=== PATIENT | female | born 1970 | race Caucasian/White ===

== ENCOUNTER 2018-02-16 13:54 | Emergency (ER) | payer BC ==
[2018-02-16] MEDS ORDERED: TETANUS & DIPHTHERIA TOX,ADULT 0.5 ML VIAL ONE (14:21)
[2018-02-16] MEDS ORDERED: DERMABOND SKIN ADHESIVE TOP ONE (14:21)
--- NOTE | 2018-02-16 14:43 | EDPHYS ---
Physician Documentation [facility] Name: Daja Escoto Age: 47 yrs Sex: Female : 1970 Arrival Date: 02/16/2018 Time: 13:56 Bed 13 Private MD: Rita Abreu H ED Physician Bon Garcia HPI: 02/16 14:40 This 47 yrs old Female presents to ER via Ambulatory with complaints of jr8 Finger Injury. 14:40 The patient or guardian reports a laceration, pain. The complaints affect the DIP of jr8 right middle finger. Context: The problem was sustained at home. Onset: The symptoms/episode began/occurred acutely, today. Modifying factors: The symptoms are alleviated by nothing, the symptoms are aggravated by movement. Associated signs and symptoms: The patient has no apparent associated signs or symptoms. Severity of symptoms: At their worst the symptoms were moderate, in the emergency department the symptoms are unchanged. The patient has not experienced similar symptoms in the past. The patient has not recently seen a physician. Stated that she caught finger in trailer ramp. 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 - Social history:: Smoking status: Patient/guardian denies using tobacco. - Ebola Screening: : No symptoms or risks identified at this time. ROS: 14:40 Eyes: Negative for injury, pain, redness, and discharge, ENT: Negative for injury, jr8 pain, and discharge, Neck: Negative for injury, pain, and swelling, Cardiovascular: Negative for chest pain, palpitations, and edema, Respiratory: Negative for shortness of breath, cough, wheezing, and pleuritic chest pain, Abdomen/GI: Negative for abdominal pain, nausea, vomiting, diarrhea, and constipation, Back: Negative for injury and pain, Skin: Negative for injury, rash, and discoloration, Neuro: Negative for headache, weakness, numbness, tingling, and seizure. 14:40 MS/extremity: Positive for decreased range of motion, ecchymosis, laceration, pain, tenderness, of the DIP of right middle finger. Exam: 14:40 Eyes: Pupils equal round and reactive to light, extra-ocular motions intact. Lids and jr8 lashes normal. Conjunctiva and sclera are non-icteric and not injected. Cornea within normal limits. Periorbital areas with no swelling, redness, or edema. ENT: Nares patent. No nasal discharge, no septal abnormalities noted. Tympanic membranes are normal and external auditory canals are clear. Oropharynx with no redness, swelling, or masses, exudates, or evidence of obstruction, uvula midline. Mucous membranes moist. Neck: Trachea midline, no thyromegaly or masses palpated, and no cervical lymphadenopathy. Supple, full range of motion without nuchal rigidity, or vertebral point tenderness. No Meningismus. Cardiovascular: Regular rate and rhythm with a normal S1 and S2. No gallops, murmurs, or rubs. Normal PMI, no JVD. No pulse deficits. Respiratory: Lungs have equal breath sounds bilaterally, clear to auscultation and percussion. No rales, rhonchi or wheezes noted. No increased work of breathing, no retractions or nasal flaring. Abdomen/GI: Soft, non-tender, with normal bowel sounds. No distension or tympany. No guarding or rebound. No evidence of tenderness throughout. Back: No spinal tenderness. No costovertebral tenderness. Full range of motion. Skin: Warm, dry with normal turgor. Normal color with no rashes, no lesions, and no evidence of cellulitis. Neuro: Awake and alert, GCS 15, oriented to person, place, time, and situation. Cranial nerves II-XII grossly intact. Motor strength 5/5 in all extremities. Sensory grossly intact. Cerebellar exam normal. Normal gait. 14:40 Musculoskeletal/extremity: Extremities: grossly normal except: noted in the DIP of right middle finger: decreased ROM, ecchymosis, laceration, pain, tenderness, ROM: limited active range of motion, limited passive range of motion, limited active range of motion due to pain, limited passive range of motion due to pain, Circulation is intact in all extremities. Sensation intact. Vital Signs: 14:04 BP 179 / 88; Pulse 82; Resp 20; Temp 98.4; Pulse Ox 98% ; Weight 65.77 kg; Height 5 ft. sv 5 in. (165.10 cm); Pain 2/10; 14:04 Body Mass Index 24.13 (65.77 kg, 165.10 cm) sv Laceration: 14:40 Wound Repair of 1.5cm ( 0.6in ) subcutaneous laceration to DIP of right middle finger. jr8 Irregularly shaped.. Distal neuro/vascular/tendon intact. Wound prep: Extensive cleansing with hibiclenz by nurse, Wound irrigation with saline by nurse, Wound explored extensively. Skin closed with 2 thin layer Adhesive skin closure using Dermabond. MDM: 14:14 Patient medically screened. jr8 14:40 Data reviewed: vital signs, nurses notes, and as a result, I will discharge patient. jr8 Data reviewed: radiologic studies, plain films. Data interpreted: Pulse oximetry: on room air is 98 %. Interpretation: normal. Counseling: I had a detailed discussion with the patient and/or guardian regarding: the historical points, exam findings, and any diagnostic results supporting the discharge/admit diagnosis, radiology results, the need for outpatient follow up, a family practitioner, to return to the emergency department if symptoms worsen or persist or if there are any questions or concerns that arise at home. 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 Exp: rb1 02/26/2020. Lot #: [id number]. } Route: IM; Site: right deltoid; 14:33 Follow up: Response: No adverse reaction rb1 Disposition: 15:21 Co-signature as Attending Physician, Bon Garcia MD. rn Disposition: 02/16/18 14:43 Discharged to Home. Impression: Laceration without foreign body of right middle finger without damage to nail, Contusion of right middle finger without damage to nail. - Condition is Stable. - Discharge Instructions: Stitches, Negar, or Adhesive Wound Closure. - Medication Reconciliation Form, Thank You Letter, Antibiotic Education, Prescription Opioid Use form. - Follow up: Rita Abreu DO; When: 5 - 6 days; Reason: Wound Recheck, Recheck today's complaints, Continuance of care, Re-evaluation by your physician. - Problem is new. - Symptoms have improved. Signatures: Dispatcher [employer] Sudha Cali RN RN Bon Love MD MD rn Roszak, Josh, PA PA jr8 Veronika Webb, RN RN rb1 Corrections: (The following items were deleted from the chart) 14:59 14:43 02/16/2018 14:43 Discharged to Home. Impression: Laceration without foreign body rb1 of right middle finger without damage to nail; Contusion of right middle finger without damage to nail. Condition is Stable. Forms are Medication Reconciliation Form, Thank You Letter, Antibiotic Education, Prescription Opioid Use. Follow up: Rita Abreu; When: 5 - 6 days; Reason: Wound Recheck, Recheck today's complaints, Continuance of care, Re-evaluation by your physician. Problem is new. Symptoms have improved. jr8
--- NOTE | 2018-02-16 14:43 | ER ---
Nurse's Notes [facility] Name: Daja Escoto Age: 47 yrs Sex: Female : 1970 Arrival Date: 02/16/2018 Time: 13:56 Bed 13 Private MD: Rita Abreu H Diagnosis: Laceration without foreign body of right middle finger without damage to nail;Contusion of right middle finger without damage to nail Presentation: 02/16 13:59 Presenting complaint: Patient states: right 3rd digit was smashed in a door yesterday sv at 2000. Laceration noted to dorsal of 3rd right digit. Transition of care: patient was not received from another setting of care. Onset of symptoms was February 15, 2018. Care prior to arrival: None. 13:59 Method Of Arrival: Ambulatory sv 13:59 Acuity: DANILO 4 sv 14:00 Risk Assessment: Do you want to hurt yourself or someone else? Patient reports no rb1 desire to harm self or others. Initial Sepsis Screen: Does the patient meet any 2 criteria? No. Patient's initial sepsis screen is negative. Does the patient have a suspected source of infection? No. Patient's initial sepsis screen is negative. 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 - Social history:: Smoking status: Patient/guardian denies using tobacco. - Ebola Screening: : No symptoms or risks identified at this time. Screenin:00 Abuse screen: Denies threats or abuse. Nutritional screening: No deficits noted. rb1 Tuberculosis screening: No symptoms or risk factors identified. Fall Risk None identified. Assessment: 14:00 General: Appears in no apparent distress. comfortable, Behavior is calm, cooperative, rb1 Denies fever. Pain: Complains of pain in dorsal aspect of distal phalanx of right middle finger Pain currently is 4 out of 10 on a pain scale. Pain began 1 day ago. Neuro: Level of Consciousness is awake, alert, obeys commands, Oriented to person, place, time, situation. Cardiovascular: Capillary refill < 3 seconds is brisk in bilateral fingers. Respiratory: Airway is patent Respiratory effort is even, unlabored, Respiratory pattern is regular, symmetrical. GI: No signs and/or symptoms were reported involving the gastrointestinal system. : No signs and/or symptoms were reported regarding the genitourinary system. Derm: Skin is pink, warm \T\ dry. Musculoskeletal: Range of motion: limited in middle finger on right hand. Injury Description: Laceration sustained to dorsal aspect of distal phalanx of right middle finger is not bleeding, was sustained 1 day ago. no active bleeding noted at this time. 14:50 Reassessment: Patient appears in no apparent distress at this time. No changes from rb1 previously documented assessment. Vital Signs: 14:04 BP 179 / 88; Pulse 82; Resp 20; Temp 98.4; Pulse Ox 98% ; Weight 65.77 kg; Height 5 ft. sv 5 in. (165.10 cm); Pain 2/10; 14:04 Body Mass Index 24.13 (65.77 kg, 165.10 cm) sv ED Course: 13:56 Patient arrived in ED. mr 13:57 Rita Abreu DO is Private Physician. mr 13:57 Arm band placed on right wrist. Patient placed in an exam room, on a stretcher. sv 14:00 Patient has correct armband on for positive identification. Bed in low position. Call rb1 light in reach. Side rails up X 1. Pulse ox on. NIBP on. 14:04 Triage completed. sv 14:07 Surjit Daniel PA is PHCP. jr8 14:07 Bon Garcia MD is Attending Physician. jr8 14:09 Veronika Webb, LIZETT is Primary Nurse. rb1 14:34 XRAY Hand RIGHT 3 View In Process Unspecified. EDMS 14:35 X-ray completed. Portable x-ray completed in exam room. jr1 14:42 Rita Abreu DO is Referral Physician. jr8 14:59 No provider procedures requiring assistance completed. Patient did not have IV access rb1 during this emergency room visit. 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 Exp: rb1 02/26/2020. Lot #: [id number]. } Route: IM; Site: right deltoid; 14:33 Follow up: Response: No adverse reaction rb1 Outcome: 14:43 Discharge ordered by MD. xie 14:59 Patient left the ED. rb1 14:59 Discharged to home ambulatory. rb1 14:59 Condition: stable 14:59 Discharge instructions given to patient, Instructed on discharge instructions, follow up and referral plans. Demonstrated understanding of instructions, follow-up care, Prescriptions given X none Signatures: Dispatcher [employer] EDSudha Dunn, Aliyah Maldonado RN mr [place], Riddhi jr1 Surjit Daniel PA PA jr8 Veronika Webb RN RN rb1
--- NOTE | 2018-02-16 14:54 | RAD REPORT ---
EXAM DESCRIPTION: RAD - Hand Right 3 View - 02/16/2018 2:37 pm CLINICAL HISTORY: Hand pain, blunt force trauma third digit, third digit laceration COMPARISON: None. FINDINGS: No fracture is identified. There is no dislocation or periosteal reaction noted. No forei gn body or other soft tissue abnormality. IMPRESSION: Negative right hand examination.
== END 2018-02-16 14:59 | disposition home or self-care (01) ==
LOC: ER 13:54
PROC: 0JQJ0ZZ Repair Right Hand Subcutaneous Tissue and Fascia, Open Approach (ICD-10-PCS; principal; 2018-02-16)
DX: S61.212A Laceration without foreign body of right middle finger without damage to nail, initial encounter (principal); W45.8XXA Other foreign body or object entering through skin, initial encounter; Y93.9 Activity, unspecified; Y92.9 Unspecified place or not applicable; Z23 Encounter for immunization
CPT/HCPCS: 90714; 99284